=== PATIENT | female | born 1955 | race Caucasian/White ===

== ENCOUNTER 2017-01-12 12:37 | Emergency (ER) ==
--- NOTE | 2017-01-12 13:59 | PROVIDER DOCUMENTATION ---
HPI-Musculoskeletal Pain/Inj <Miguel Angel Fitzgerald - Last Filed: 01/12/17 14:30> - GENERAL Source: patient - HX OF PRESENT ILLNESS-MUSKULOSKELTAL Quality of Pain: reports: aching Severity in ED: mild Onset/Duration: other (10 days ago) Timing: still present Modifying Factors: improves with: nothing Any recent injury?: Yes Similar Symptoms Previously?: No Recently seen or treated by another doctor?: No - FALL INJURY Location of Pain/Injury: reports: upper extremity (L wrist) Pain Radiation: reports: no radiation Reason for Fall: reports: tripped Symptoms prior to fall:: reports: none Loss of Consciousness: no loss of consciousness Injury Associated Symptoms: reports: muscle aches, other (decreased sarahy). denies: chest pain, shortness of breath - UPPER EXTREMITY PAIN/INJURY Extremities Pain Location: arm: left Context / Method of Injury: reports: fell Associated Symptoms: reports: other (pain/ chills/ decreased sarahy) <Saumya Miller - Last Filed: 01/12/17 16:18> - GENERAL Chief Complaint: Extremity Injury Stated Complaint: FALL/ARM INJURY Time Seen by Provider: 01/12/17 13:54 - HX OF PRESENT ILLNESS-MUSKULOSKELTAL Nature of Presenting Problem: 61 y/o F presents to ED cc of fall x 10 days ago while walking the dogs. Pt is having L arm pain with some mild deformity. Pt also reports increased chills and decreased appetite. Pt is alert and oriented. Pt rates pain 3/10. (Saumya Miller) Review of Systems - Adult - REVIEW OF SYSTEMS - ADULT Constitutional: reports: chills, other (decreased sarahy). denies: fever, night sweats Cardiovascular: denies: chest pain, palpitations Respiratory: denies: cough, shortness of breath Gastrointestinal: denies: abdominal pain, diarrhea, nausea, vomiting Musculoskeletal: reports: other (L WRIST PAIN). denies: bone pain, back pain, frequent leg cramps Neurological: denies: dizziness/vertigo, headache/migraines <Saumya Miller - Last Filed: 01/12/17 16:18> Past History - Adult - PAST MEDICAL HISTORY-ADULT Review of Records: reports: Old Records Reviewed, Nursing Assessment Review <Saumya Miller - Last Filed: 01/12/17 16:18> Physical Exam-Injury Related - Physical Exam-Injury Related Initial Vital Signs Reviewed: Yes General Appearance: appears well, alert, no apparent distress Immobilization?: applied in ED Eyes: pink conjunctivae Head, Ears, Nose, Mouth & Throat: moist mucous membranes Neck: non-tender, full range of motion, supple Respiratory: chest non-tender, no pleuratic chest pain, no respiratory distress , no accessory muscle use Cardiovascular: normal peripheral pulses, tachycardia Abdominal Exam: non tender, soft Back Exam: no CVA tenderness, no vertebral tenderness Extremity: non-tender, normal gait Integumentary: normal color, warm/dry Neurologic: grossly normal, no motor/sensory deficits Psych/Mental Status: normal mood/affect, normal thought content, normal thought process, oriented x 3 - Glascow Coma Score Best Eye Response (Robinson): (4) open spontaneously Best Verbal Response (Robinson): (5) oriented Best Motor Response (Jose): (6) obeys commands Robinson Total: 15 <Saumya Miller - Last Filed: 01/12/17 16:18> Progress <Miguel Angel Fitzgerald - Last Filed: 01/12/17 14:30> - XRAY 1 XRAY: Left XRAY Study: Forearm, Wrist Impression: Abnormal (colles fracture) XRAY Interpretation: see impression - Dr. Fitzgerald(er doc) <Saumya Miller - Last Filed: 01/12/17 16:18> - PLAN OF CARE/RESULTS Progress/Plan/Lab Results: PLAN: XRAY OF WRIST/ FOREARM DR FITZGERALD READ XRAY PT HAS A COLLIES FX PER PT WILL BE PLACED IN A SPLINT WITH AN ARM SLING AND WILL BE REFEREED TO ORTHO FOR FOLLOW UP. SPLINT AND SLING WAS APPLIED BY NURSING STAFF PT IS READY FOR DISCHARGE AND UNDERSTANDS PLAN TO FOLLOW UP WITH ORTHO PT WILL BE GIVEN PAIN MEDICATION Orders Category Date Time Status Arm Sling DIRECTED Care 01/12/17 13:57 Active OCL Splint DIRECTED Care 01/12/17 13:56 Active FOREARM-LEFT [RAD] Stat Exams 01/12/17 13:25 Draft WRIST COMPLETE LEFT [RAD] Stat Exams 01/12/17 13:25 Draft Vital Signs - 24 hr 01/12/17 13:22 Temperature 98.6 F Pulse Rate 96 H Respiratory 20 Rate Blood Pressure 168/103 O2 Sat by Pulse 100 Oximetry (Saumya Miller) Procedures - SPLINTING Left Upper Extremity Pre-Procedure Neurovascular Exam: Intact Pre-Fabricated Splint: Arm Sling Splint Application (Hand-Made): Sugar-Tong Applied By: rip saw operator Assisted By: ED Nurse Post Procedure Neurovascular Exam: Intact Procedure Comment: pt understands to follow up with ortho <Saumya Miller - Last Filed: 01/12/17 16:18> Departure - Departure Time of Disposition Order: 14:30 Certified Medical Emergency: Emergent <Miguel Angel Fitzgerald - Last Filed: 01/12/17 14:30> <Saumya Miller - Last Filed: 01/12/17 16:18> - Departure DIAGNOSIS: Colles' fracture of left radius Qualifiers: Encounter type: initial encounter Fracture type: closed Qualified Code(s): S52.532A - Colles' fracture of left radius, initial encounter for closed fracture Disposition: HOME 01 Condition: Stable Additional Instructions: fu with Dr Tinajero this next week ED Follow Up Instructions: You have been treated by a care provider in the Emergency Department. These instructions are being provided to you so you can have an understanding of how to care for yourself upon discharge. Upon discharge from the Emergency Department, you are responsible for making arrangements for follow-up care by a physician of your choice. Take all prescribed medications as directed. Return to the Emergency Department immediately for any new or worsening symptoms. You may call the Physician Referral phone number at [phone] to obtain a list of Physicians who are taking new patients. Prescriptions: Hydrocodone/Acetaminophen [Eldridge 5-325 Tablet] 1 each PO Q4-6H PRN PRN #20 tablet PRN Reason: Pain Referrals: Sammy Alvarado [Primary Care Provider] - Lyndsey Kim MD [STAFF PHYSICIAN] - Instructions: Colles Fracture Attestation - Scribe Verification/Attestation Scribe:: Saumya Miller Acting as Scribe for:: Miguel Angel Fitzgerald Scribe documention review:: This chart was documented by a scribe and accurately reflects the service the provider performed and the decisions made by the provider. <Saumya Miller - Last Filed: 01/12/17 16:18> Physician Attestation
--- NOTE | 2017-01-12 14:18 | Diag Imaging Result Document ---
PROCEDURE NAME: WRIST COMPLETE LEFT - 01/12/2017 PLAIN RADIOGRAPH OF THE LEFT WRIST 3 VIEWS: COMPARISON: None available. FINDINGS: There is a comminuted fracture involving the distal metaphysis of the radius with dorsal displacement of the distal fragments. No other definite fracture or dislocation is appreciated. There is soft tissue edema around the wrist. IMPRESSION: Fracture of the distal radius as described.
--- NOTE | 2017-01-12 14:20 | Diag Imaging Result Document ---
PROCEDURE NAME: FOREARM-LEFT - 01/12/2017 PLAIN RADIOGRAPH OF THE LEFT FOREARM 2 VIEWS: COMPARISON: None available. FINDINGS: There is a comminuted fracture involving the distal metaphysis of the radius with dorsal and lateral displacement of the distal fragments. Please see separate wrist radiograph report. No other discrete fracture, dislocation, or intrinsic osseous lesion is appreciated. There is soft tissue edema around the wrist. IMPRESSION: Fracture of the distal radius as described.
[2017-01-12 14:46] VITALS: BP 125/86
== END 2017-01-12 14:47 | disposition home or self-care (01) ==
LOC: ED 12:37
DX: S52.532A Colles' fracture of left radius, initial encounter for closed fracture (principal); M79.602 Pain in left arm; M79.1 Myalgia; W01.0XXA Fall on same level from slipping, tripping and stumbling without subsequent striking against object, initial encounter; M25.532 Pain in left wrist; R00.0 Tachycardia, unspecified